=== PATIENT | male | born 1990 | race Caucasian/White ===

== ENCOUNTER 2018-07-10 16:44 | Emergency (ER) | payer OTHER ==
[~2018-07-10] VITALS: Ht 170.2 cm; Wt 52.2 kg
[~2018-07-10 16:44] MED LIST: HYDROCODON-ACE1 EAC7 PO; NORCO 5-325 TA1 EACH PO; ZOFRAN ODT4 MG SUBLING
[2018-07-10] MEDS ORDERED: ACYCLOVIR 800800 MG PO (17:11)
[2018-07-10] MEDS ORDERED: HYDROXYZINE HCL25 M1 PO (17:11)
[2018-07-10] MEDS ORDERED: MEDROLDOSEPACK PO (17:11)
[2018-07-10 17:13] VITALS: BP 121/82
== END 2018-07-10 17:19 | disposition home or self-care (01) ==
LOC: M.ERS 16:44
DX: L21.0 Seborrhea capitis (principal); B02.9 Zoster without complications